=== PATIENT | female | born 1970 | race Caucasian/White ===

== ENCOUNTER 2023-05-29 15:25 | Outpatient (REF) | payer SELFPAY ==
--- NOTE | 2023-05-29 08:45 | PAPFT_PTH ---
PATIENT: Polly Peck LOC: [facility] U#:[id number] AGE/SX: 52/F ROOM: RE05/29/[address]: Jasbir Gonzalez : 1970 BED: DIS: 05/29/2023 SPEC #: [id number] RECD: 05/29/23 17:55 STATUS: ASHLEY REQ #: [id number] MARSHALL: 05/29/23 08:[address]: Jasbir Gonzalez DEPT: [facility] Cytology RECD BY: Gem Laws ENTERED: 05/29/23 17:55 SP TYPE: PAPFT OTHR DR: Unknown,Unknown Tissues: 1 - CX/ENDOCX FOR PAP SMEARS Procedures: PAP THIN PREP/[facility] Screening HPV DNA PROBE Comments: [id number] (HPV 16 & 18/45)
== END 2023-05-29 15:26 | disposition home or self-care (01) ==
LOC: NCHCN 15:25
PROVIDERS: Visit Provider Family Medicine
DX: Z00.00 Encounter for general adult medical examination without abnormal findings (principal)
CPT/HCPCS: 88142; 87624